=== PATIENT | female | born 1995 | race Two or more races ===

== ENCOUNTER 2023-02-15 10:28 | Emergency (ER) | payer OTHER, SELFPAY ==
[2023-02-15 10:49] VITALS: BP 105/73; PULSE 97; RESP 18; TEMP 37.2; O2SAT 99; BMI 17.9
--- NOTE | 2023-02-15 11:27 | ECG_ITS ---
Test Reason : ABD PAIN Blood Pressure : / mmHG Vent. Rate : 057 BPM Atrial Rate : 057 BPM P-R Int : 128 ms QRS Dur : 074 ms QT Int : 414 ms P-R-T Axes : 038 078 047 degrees QTc Int : 402 ms Sinus bradycardia with Premature atrial complexes Otherwise normal ECG No previous ECGs available Referred By: Kit Hough Electronically Signed By:LAYLA GILMORE MD
[2023-02-15 11:34] LABS: Basophils Percent Auto 0.1 % (0-2); Eosinophils Percent Auto 0.1 % (0-4); Hematocrit 39.6 % (37.0-47.0); Hemoglobin 13.7 g/dl (12.0-16.0); Imm Gran Abs Auto 0.02 X10*3/uL (0.00-0.03); Imm Gran Pct Auto 0.3 % (0.0-0.4); Lymphocytes Absolute Auto 1.2 X10*3/uL (1.2-4.9); Lymphocytes Percent Auto 15.1 % (20-40); MANUAL DIFF FLAG NO; Mean Corpuscular HGB Conc 34.6 g/dl (31.0-35.0); Mean Corpuscular Hemoglobin 27.9 pg (27.0-33.0); Mean Corpuscular Volume 80.7 fL (80.0-98.0); Mean Platelet Volume 10.1 fL (9.4-12.3); Monocytes Absolute Auto 0.5 X10*3/uL (0.1-1.2); Monocytes Percent Auto 6.2 % (2-11); Neutrophils Absolute Auto 6.1 x10*3/uL (2.0-8.3); Neutrophils Percent Auto 78.2 % (45-73); Platelet Count 301 X10*3/uL (160-400); Red Blood Count 4.91 X10*6/uL (4.20-5.50); Red Cell Distribution Width 15.4 % (11.0-16.0); White Blood Count 7.8 X10*3/uL (4.8-10.8)
[2023-02-15 11:58] LABS: Anion Gap 18 (12-20); Blood Urea Nitrogen 18 mg/dL (9-16); Calcium 10.2 mg/dL (8.4-10.2); Carbon Dioxide 21 mmol/L (22-29); Chloride 104 mmol/L (96-108); Creatinine Clr Calc Pharmacy 74.7; Estimated Glomerular Filt Rate > 60; Glucose Random 119 mg/dL (60-115); Potassium 4.6 mmol/L (3.3-5.1); Sodium 138 mmol/L (135-145)
[2023-02-15] MEDS: 0.9 % Sodium Chloride 1,000 ML 999 ML IVCONT (12:04)
[2023-02-15] MEDS: ondansetron HCL 4 MG/2 ML VIAL IVPUSH (12:06)
[2023-02-15] MEDS: LORazepam 2 MG/ML VIAL 1 MG IVPUSH (12:06)
[2023-02-15] MEDS: Famotidine/PF 20 MG/2 ML VIAL IVPUSH (12:06)
--- NOTE | 2023-02-15 13:05 | ED_ITS ---
HPI - Nausea/Vomiting/Diarrhea General Chief complaint: Nausea/Vomiting/Diarrhea Stated complaint: Cylical Vomiting Time Seen by Provider: 02/15/23 11:19 History of Present Illness HPI Narrative: Patient with history of cyclic vomiting, has been vomiting for the last 2 days, no significant abdominal pain although there is some crampy intermittent mild burning pain, she has had no diarrhea She is new to the area but in her previous location she was treated many times in the ER sometimes with Haldol if Zofran and Ativan did not relieve her vomiting She denies fever she denies burning of urination The vomiting today is the same as her many previous episodes Related Data Previous Rx's Medication Instructions Recorded famotidine 20 mg tablet (Pepcid) 20 mg PO DAILY Acid stomach pain 02/15/23 #10 tabs lorazepam 1 mg tablet (Ativan) 1 mg PO BID PRN nausea and 02/15/23 vomiting #7 tabs ondansetron 4 mg disintegrating 4 mg PO Q6H PRN nausea and 02/15/23 tablet vomiting #10 tabs Allergies Allergy/AdvReac Type Severity Reaction Status Date / Time No Known Allergies Allergy Verified 02/15/23 10:48 [facility] Past Medical History Source: nursing notes reviewed Social History Social History Advance Directives: No Advance Directives Information Provided: Yes Physical Exam Vital Signs: Vital Signs: Last Vital Signs Temp 98.9 F 02/15/23 10:49 Pulse 97 02/15/23 10:49 Resp 18 02/15/23 10:49 BP 105/73 02/15/23 10:49 Pulse Ox 99 02/15/23 10:49 O2 Del Method Room Air 02/15/23 10:49 BMI result Body Mass Index 17.9 General appearance is no acute distress Eyes are anicteric no pallor Pharynx mucous membranes are moist Neck is supple The chest is clear to auscultation bilateral Heart no murmur Abdomen soft nontender Extremities full range of motion x4 no edema Skin no rash Course Course Course Narrative: Patient was given Zofran and Ativan and a L of fluids after completion of the L she felt much better and was tolerating p.o. Rear exam there is no tenderness of the abdomen she tolerates p.o. feels improved and was discharged Medications Administered Discontinued Medications Generic Name Dose Route Start Last Admin Trade Name Freq PRN Reason Stop Dose Admin Famotidine 20 mg 04/14/23 11:28 02/15/23 12:06 Famotidine/Pf 20 Mg/2 Ml Vial IVPUSH 02/15/23 11:29 20 mg ONCE ONE Administration Sodium Chloride 1,000 mls @ 999 mls/hr 02/15/23 11:30 02/15/23 13:44 Ns IVCONT 02/15/23 12:30 Infused .Q1H1M GAVI Infusion Lorazepam 1 mg 02/15/23 11:28 02/15/23 12:06 Lorazepam 2 Mg/Ml Vial IVPUSH 02/15/23 11:29 1 mg ONCE ONE Administration Ondansetron HCl 4 mg 02/15/23 11:28 02/15/23 12:06 Ondansetron Hcl 4 Mg/2 Ml Vial IVPUSH 02/15/23 11:29 4 mg ONCE ONE Administration Medical Decision Making Lab Data 02/15/23 11:29 02/15/23 11:29 Labs: Lab Results 02/15/23 02/15/23 02/15/23 Range/Units 11:29 11:29 13:53 WBC 7.8 (4.8-10.8) X10*3/uL RBC 4.91 (4.20-5.50) X10*6/uL Hgb 13.7 (12.0-16.0) g/dl Hct 39.6 (37.0-47.0) % MCV 80.7 (80.0-98.0) fL MCH 27.9 (27.0-33.0) pg MCHC 34.6 (31.0-35.0) g/dl RDW 15.4 (11.0-16.0) % Plt Count 301 (160-400) X10*3/uL MPV 10.1 (9.4-12.3) fL Immature Gran % (Auto) 0.3 (0.0-0.4) % Neut % (Auto) 78.2 H (45-73) % Lymph % (Auto) 15.1 L (20-40) % [place] % (Auto) 6.2 (2-11) % Eos % (Auto) 0.1 (0-4) % Baso % (Auto) 0.1 (0-2) % Lymph # (Auto) 1.2 (1.2-4.9) X10*3/uL [place] # (Auto) 0.5 (0.1-1.2) X10*3/uL Eos # (Auto) 0.0 (0.0-0.4) X10*3/uL Baso # (Auto) 0.0 (0.0-0.2) X10*3/uL Abs Immat Gran (auto) 0.02 (0.00-0.03) X10*3/uL Absolute Neuts (auto) 6.1 (2.0-8.3) x10*3/uL Absolute Nucleated RBC 0.000 (0.0-0.012) X10*3/uL Nucleated RBC % (auto) 0.0 (0.0-0.2) /100WBC Sodium 138 (135-145) mmol/L Potassium 4.6 (3.3-5.1) mmol/L Chloride 104 (96-108) mmol/L Carbon Dioxide 21 L (22-29) mmol/L Anion Gap 18 (12-20) BUN 18 H (9-16) mg/dL Creatinine 0.81 (0.5-1.4) mg/dL Estim Creat Clear Calc 74.7 Estimated GFR > 60 Random Glucose 119 H (60-115) mg/dL Calcium 10.2 (8.4-10.2) mg/dL Beta HCG, Quant < 2 mIU/mL Urine Test NEGATIVE (NEGATIVE) Discharge Plan Discharge Clinical Impression: Cyclical vomiting Patient Disposition: Home, Self-Care Additional Instructions: Drink plenty of fluids, use Zofran and Ativan as needed for vomiting Use Pepcid if needed for burning stomach acid pain Return any time any worse condition or any concerns Prescriptions: New ondansetron 4 mg tablet,disintegrating 4 mg PO Q6H PRN (Reason: nausea and vomiting) Qty: 10 0RF lorazepam [Ativan] 1 mg tablet 1 mg PO BID PRN (Reason: nausea and vomiting) Qty: 7 0RF famotidine [Pepcid] 20 mg tablet 20 mg PO DAILY Qty: 10 0RF Interventions: ED Discharge Assessment Last Done: 02/15/23 14:16 Discharge Date/Time: 02/15/23 14:16
[2023-02-15 14:17] LABS: UPreg QC Valid YES; Urine Pregnancy NEGATIVE (NEGATIVE)
[2023-02-15 14:28] LABS: HCG Quantitative < 2 mIU/mL
== END 2023-02-15 14:16 | disposition home or self-care (01) ==
PROVIDERS: Physician Assistant Medical; Emergency Provider Emergency Medicine
DX: R11.15 Cyclical vomiting syndrome unrelated to migraine (principal)
CPT/HCPCS: 36415; 80048; 81025; 84702; 85025; 93005; 96361; 96374; 96375; 99284; J2060; J2405